=== PATIENT | male | born 1990 | race Caucasian/White ===

== ENCOUNTER 2017-12-06 15:47 | Emergency (ER) | payer OTHER ==
[~2017-12-06] VITALS: Ht 185.4 cm; Wt 95.3 kg
[2017-12-06] MEDS ORDERED: MAXZIDE-25 MG1 EACH PO (15:52)
[2017-12-06 16:05] LABS: ABSOLUTE NEUTROPHILS 9.5 thou/uL (1.4-8.2); BASOPHILS 0.8 % (0.0-2.0); EOSINOPHILS 0.9 % (0.0-3.0); HEMATOCRIT 42.2 % (42.0-52.0); HEMOGLOBIN 14.5 gm/dL (14.0-18.0); LYMPHOCYTES 22.8 % (24.0-44.0); MCHC 34.4 g/dL (28.0-37.0); MCV 90.2 fL (80.0-100.0); MONOCYTES 5.5 % (1.0-8.0); PLATELET COUNT 216 thou/uL (150-400); RBC 4.67 mil/uL (4.50-6.00); RDW 12.8 % (10.5-14.5); WBC 13.6 thou/uL (4.0-11.0)
[2017-12-06 16:12] LABS: CALCIUM 9.1 mg/dL (8.5-10.1)
[2017-12-06 16:18] LABS: ALBUMIN 4.4 g/dL (3.4-5.0); TOTAL BILIRUBIN 0.4 mg/dL (<0.1-1.0); TOTAL PROTEIN 6.8 g/dL (6.4-8.2)
[2017-12-06 16:21] LABS: POTASSIUM 2.7 mmol/L (3.5-5.1)
[2017-12-06] MEDS ORDERED: POTASSIUM20 PO (18:53)
[2017-12-06] MEDS ORDERED: ANTIVERT25 MG PO (18:53)
[2017-12-06] MEDS ORDERED: ONDANSETRON HCL4 M2 PO (18:53)
[2017-12-06 19:44] VITALS: BP 123/76
== END 2017-12-06 19:45 | disposition home or self-care (01) ==
LOC: ER 15:47
PROVIDERS: Physician Assistant
DX: E87.6 Hypokalemia (principal); R11.2 Nausea with vomiting, unspecified